=== PATIENT | female | born 2005 ===

== ENCOUNTER 2024-05-29 17:45 | Emergency (ER) | payer MEDICAID, SELFPAY ==
--- NOTE | ~2024-05-29 | US_ITS ---
EXAMINATION: US OBSTETRICAL ULTRASOUND CLINICAL INFORMATION: conception. Vaginal bleeding. Pelvic cramping for 2 days. COMPARISON: None. TECHNIQUE: Transvaginal: Used to better visualize pelvic structures Transabdominal: Not adequate for visualization. Spectral Doppler and color Doppler exam was utilized. LMP: 02/21/2024 FINDINGS: UTERUS: There is a small volume of heterogeneous material within the endometrial cavity. This does not demonstrate any significant vascular flow on color Doppler. No evidence of retained products of conception. Endometrial thickness 1.4 cm. ADNEXA: Ovarian vascularity:Doppler demonstrates both arterial and venous vascular flow in the right and left ovary. No evidence of ovarian torsion. Right Ovary: 3.4 x 1.7 x 2 cm. Volume 6.1 mL Left Ovary: Cyst with thickened wall measuring 1.4 cm likely due to involuting corpus luteum cyst. Left ovary measures 3.6 x 1.5 x 2.5 cm. Volume 6.9 mL. Cul-de-sac: Small volume of fluid. US/US OB pelvic and transvaginal IMPRESSION: No evidence of retained products of conception. No acute abnormality of pelvis.
--- NOTE | 2024-05-29 17:54 | ED_ITS ---
HPI - General Adult General Chief complaint: Abdominal Pain Stated complaint: D&C done 05/25,cramping/Headache Time Seen by Provider: 05/29/24 21:26 Source: patient Mode of arrival: ambulatory Limitations: no limitations History of Present Illness ED Provider: mathieu TREVIÑO narrative: Patient status post D&C for 10 weeks on 05/25 started bleeding again for last 2 days with lower abdominal cramps no fever no chills no urinary symptoms went through 2 pads prior to coming here Related Data Previous Rx's ?Medication ?Instructions ?Recorded ibuprofen 600 mg tablet 600 mg PO Q6H PRN fever or pain 05/29/24 #30 tabs Allergies Allergy/AdvReac Type Severity Reaction Status Date / Time No Known Allergies Allergy Verified 05/29/24 18:10 Review of Systems 2 Review of Systems: Yes all other systems are reviewed and are negative PMFSH Social History Social History Smoked in Last 30 Days: No Use of substances other than those prescribed or required for medical reasons: Yes Substance Use Type: Marijuana Advance Directives: No Advance Directives Information Provided: No Do you have a plan to hurt others: No Plan Patient : No (Pt reports just had a D&C done on Saturday05/25/24) Physical Exam ED Vital Signs: Vital Signs - 24 hr 05/29/24 18:06 05/29/24 20:00 05/29/24 22:53 Temperature 98.3 F 98.7 F 98.3 F Pulse Rate 92 72 64 Respiratory Rate 18 20 16 Blood Pressure 106/60 108/62 97/52 L Pulse Oximetry 98 95 98 Oxygen Delivery Method Room Air Room Air Room Air 05/29/24 23:33 Temperature 98.3 F Pulse Rate 64 Respiratory Rate 16 Blood Pressure 97/52 L Pulse Oximetry 98 Oxygen Delivery Method Room Air BMI result Body Mass Index 21.4 Appearance: Alert. Oriented X3. No acute distress. Eyes: Pallor+ ENT: Pharynx normal. Oral Mucosa moist Neck: Normal inspection. Neck supple. CVS: Normal heart rate and rhythm. Pulses normal. Respiratory: No respiratory distress. Equal air entry bilateral, Abdomen: Soft and mild suprapubic tenderness. Bowel sounds are present, no mass palpable, no CVA tenderness Skin: Skin warm and dry. Normal skin color. Normal skin turgor. Extremities: No lower extremity edema. No calf tenderness Neuro: Oriented X 3. Course Course Course Narrative: This is an RME done by LUÍS Lee: Additional HPI, ROS, PE not included below will be deferred to primary provider. 18 yo f recent suction D&C on May 25 at [facility] due to incomplete / retained products of conception. Presenting w/ nausea, heavy vaginal bleeding, abd pain, and feeling unwell. Appearance: Alert.? Oriented X3.? No acute cardiopulmonary distress distress.?appears uncomfortable Head: Normocephalic, atraumatic, no step-offs or deformities ENT: Pharynx normal.??External ears normal, TMs normal bilaterally and EAC's normal. No pain with manipulation of external ears bilaterally. No mastoid tenderness. Neck: Normal inspection.? Neck supple.? CVS: Pulses normal.? Respiratory: No respiratory distress.? Abdomen: Soft and +RLQ tenderness .? Skin: ? Normal skin color. Extremities: 5/5 strength to bilateral upper and lower extremities Back: No midline tenderness, no C-spine tenderness, full range of motion, No CVA tenderness bilaterally Neuro: Oriented X 3.? No motor deficit.? No sensory deficit. Plan- labs, urine Medications Administered Discontinued Medications Generic Name Dose Route Start Last Admin Trade Name Freq PRN Reason Stop Dose Admin Oxycodone HCl 10 mg 05/29/24 21:46 05/29/24 21:57 Oxycodone Hcl Immed Release 5 Mg Tablet PO 05/29/24 21:47 10 mg ONCE ONE Administration Medical Decision Making Lab Data [facility] Lab Attestation statement: I reviewed the patient's lab results. 05/29/24 18:21 05/29/24 18:21 Labs: Lab Results 05/29/24 Range/Units 18:21 WBC 13.4 H (4.8-10.8) X10*3/uL RBC 3.58 L (4.20-5.50) X10*6/uL Hgb 10.8 L (12.0-16.0) g/dl Hct 32.0 L (37.0-47.0) % MCV 89.4 (80.0-98.0) fL MCH 30.2 (27.0-33.0) pg MCHC 33.8 (31.0-35.0) g/dl RDW 13.2 (11.0-16.0) % Plt Count 246 (160-400) X10*3/uL MPV 10.5 (9.4-12.3) fL Immature Gran % (Auto) 0.4 (0.0-0.4) % Neut % (Auto) 81.8 H (45-73) % Lymph % (Auto) 12.7 L (20-40) % [place] % (Auto) 3.7 (2-11) % Eos % (Auto) 1.2 (0-4) % Baso % (Auto) 0.2 (0-2) % Lymph # (Auto) 1.7 (1.2-4.9) X10*3/uL [place] # (Auto) 0.5 (0.1-1.2) X10*3/uL Eos # (Auto) 0.2 (0.0-0.4) X10*3/uL Baso # (Auto) 0.0 (0.0-0.2) X10*3/uL Abs Immat Gran (auto) 0.06 H (0.00-0.03) X10*3/uL Absolute Neuts (auto) 10.9 H (2.0-8.3) x10*3/uL Absolute Nucleated RBC 0.000 (0.0-0.012) X10*3/uL Nucleated RBC % (auto) 0.0 (0.0-0.2) /100WBC Sodium 140 (135-145) mmol/L Potassium 4.0 (3.3-5.1) mmol/L Chloride 110 H (96-108) mmol/L Carbon Dioxide 20 L (22-29) mmol/L Anion Gap 14 (12-20) BUN 5 L (9-16) mg/dL Creatinine 0.66 (0.5-1.4) mg/dL Estim Creat Clear Calc 107.5 Estimated GFR > 60 Random Glucose 88 (60-115) mg/dL Calcium 9.2 (8.4-10.2) mg/dL Magnesium 1.9 (1.6-2.6) mg/dL Total Bilirubin 0.3 (0.0-1.0) mg/dL AST 24 (5-31) U/L ALT 29 (0-31) U/L Alkaline Phosphatase 54 (39-117) U/L Total Protein 7.3 (6.5-8.0) g/dL Albumin 4.0 (3.5-5.0) g/dL Beta HCG, Quant 419 mIU/mL Blood Type O Positive Independent Interpretation I performed an independent interpretation of an: Ultrasound Radiology Impression Discussion of test interpretation with radiology: I have reviewed the radiologist's reading. Radiologist Impression: US/US OB pelvic and transvaginal IMPRESSION: No evidence of retained products of conception. No acute abnormality of pelvis. Discharge Plan Discharge Clinical Impression: in first trimester Patient Disposition: Home, Self-Care Instructions: Miscarriage (ED), Dilation and Curettage (DC) Additional Instructions: Your ultrasound is normal Take ibuprofen 600 mg every 6 hours as needed Follow with your PCP/instructional technologist Prescriptions: New ibuprofen 600 mg tablet 600 mg PO Q6H PRN (Reason: fever or pain) Qty: 30 0RF Interventions: ED Discharge Assessment Last Done: 05/29/24 23:33 Discharge Date/Time: 05/29/24 23:36 Print Language: Niuean
[2024-05-29 18:06] VITALS: BP 106/60; PULSE 92; RESP 18; TEMP 36.8; O2SAT 98; BMI 21.4
[2024-05-29 18:27] LABS: MANUAL DIFF FLAG NO
[2024-05-29 18:32] LABS: Basophils Percent Auto 0.2 % (0-2); Eosinophils Absolute Auto 0.2 X10*3/uL (0.0-0.4); Eosinophils Percent Auto 1.2 % (0-4); Hemoglobin 10.8 g/dl (12.0-16.0); Imm Gran Abs Auto 0.06 X10*3/uL (0.00-0.03); Imm Gran Pct Auto 0.4 % (0.0-0.4); Lymphocytes Absolute Auto 1.7 X10*3/uL (1.2-4.9); Lymphocytes Percent Auto 12.7 % (20-40); Mean Corpuscular HGB Conc 33.8 g/dl (31.0-35.0); Mean Corpuscular Hemoglobin 30.2 pg (27.0-33.0); Mean Corpuscular Volume 89.4 fL (80.0-98.0); Mean Platelet Volume 10.5 fL (9.4-12.3); Monocytes Absolute Auto 0.5 X10*3/uL (0.1-1.2); Monocytes Percent Auto 3.7 % (2-11); Neutrophils Absolute Auto 10.9 x10*3/uL (2.0-8.3); Neutrophils Percent Auto 81.8 % (45-73); Platelet Count 246 X10*3/uL (160-400); Red Blood Count 3.58 X10*6/uL (4.20-5.50); Red Cell Distribution Width 13.2 % (11.0-16.0); White Blood Count 13.4 X10*3/uL (4.8-10.8)
[2024-05-29 18:55] LABS: HCG Quantitative 419 mIU/mL
[2024-05-29 20:00] VITALS: BP 108/62; PULSE 72; RESP 20; TEMP 37.1; O2SAT 95
--- NOTE | 2024-05-29 20:52 | PC.NURSE ---
Pt ca&ox4, no signs of distress. Pt reports she had a D&C done on 05/25/24. Pt also reports cramping x2 nights 07/04, headache, vomiting x2 that started this am. Plan of care ongoing.
[2024-05-29] MEDS: oxyCODONE HCl Immed Release 5 MG TABLET 10 MG PO (21:57)
--- NOTE | 2024-05-29 21:58 | PC.NURSE ---
Pt medicated per mar. Pt denies NKDA. Plan of care ongoing.
[2024-05-29 22:53] VITALS: BP 97/52; PULSE 64; RESP 16; TEMP 36.8; O2SAT 98
[2024-05-29 23:26] LABS: Anion Gap 14 (12-20)
[2024-05-29 23:33] VITALS: BP 97/52; PULSE 64; RESP 16; TEMP 36.8; O2SAT 98
[2024-05-29 23:39] LABS: Alanine Aminotransferase 29 U/L (0-31); Alkaline Phosphatase 54 U/L (39-117); Aspartate Amino Transferase 24 U/L (5-31); Bilirubin Total 0.3 mg/dL (0.0-1.0); Blood Urea Nitrogen 5 mg/dL (9-16); Calcium 9.2 mg/dL (8.4-10.2); Carbon Dioxide 20 mmol/L (22-29); Chloride 110 mmol/L (96-108); Creatinine Clr Calc Pharmacy 107.5; Estimated Glomerular Filt Rate > 60; Glucose Random 88 mg/dL (60-115); Magnesium 1.9 mg/dL (1.6-2.6); Sodium 140 mmol/L (135-145); Total Protein 7.3 g/dL (6.5-8.0)
== END 2024-05-29 23:36 | disposition home or self-care (01) ==
PROVIDERS: Physician Assistant; Emergency Provider Internal Medicine
DX: O03.9 Complete or unspecified spontaneous abortion without complication (principal); R10.30 Lower abdominal pain, unspecified
CPT/HCPCS: 36415; 76801; 76817; 80053; 83735; 84702; 85025; 86900; 86901; 99284